=== PATIENT | male | born 1980 | race African-American/Black ===

== ENCOUNTER 2017-02-26 22:35 | Emergency (ER) | payer OTHER ==
[~2017-02-26] VITALS: Ht 195.6 cm; Wt 106.6 kg
[2017-02-26 23:17] LABS: ABSOLUTE BASOPHILS 0.1 thou/uL (0.0-0.2); ABSOLUTE EOSINOPHILS 0.1 thou/uL (0.0-0.7); ABSOLUTE LYMPHOCYTES 3.3 thou/uL (0.8-5.3); ABSOLUTE MONOCYTES 0.5 thou/uL (0.0-1.2); ABSOLUTE NEUTROPHILS 3.4 thou/uL (1.6-8.1); HEMATOCRIT 42.6 % (42.0-52.0); HEMOGLOBIN 14.3 gm/dL (14.0-18.0); LYMPHOCYTES 44.4 %; MCH 30.9 pg (26.0-34.0); MCHC 33.6 g/dL (28.0-37.0); MCV 92.1 fL (80.0-100.0); MONOCYTES 7.3 %; MPV 7.5 fl. (7.2-11.1); NUCLEATED RBCS 0 /100WBC; PLATELET COUNT* 263 thou/uL (150-400); POLYS 46.3 %; RBC 4.62 mil/uL (4.50-6.00); RDW-CV 12.7 % (10.5-14.5); WBC 7.5 thou/uL (4.0-11.0)
[2017-02-26 23:27] LABS: CREATININE 1.3 mg/dL (0.6-1.3); POTASSIUM 3.7 mmol/L (3.5-5.1)
[2017-02-26 23:34] LABS: BE 2.2 mmol/L (-2 to +3); HCO3 27.8 mmol/L (22.0-26.0); PCO2 46.4 mmHg (35.0-45.0); pH 7.395 (7.340-7.450)
[2017-02-26 23:49] LABS: PO2 29.8 mmHg (75.0-100.0)
[2017-02-27] MEDS ORDERED: IBUPROFEN 800800 M1 PO (00:30)
[2017-02-27] MEDS ORDERED: ONDANSETRON HCL4 M2 PO (00:31)
[2017-02-27 00:55] VITALS: BP 147/98
== END 2017-02-27 00:55 | disposition home or self-care (01) ==
LOC: M.ERS 22:35
PROVIDERS: Nurse Practitioner Family
DX: R51 Headache (principal); R42 Dizziness and giddiness; R11.0 Nausea